=== PATIENT | female | born 1965 | race Caucasian/White ===

== ENCOUNTER → 2019-08-20 | Day surgery (SDC) | payer OTHER ==
[~2019-08-20] VITALS: Ht 144.8 cm; Wt 81.4 kg
[~2019-08-20] MED LIST: ACETYLCYSTEINE 10% 100 MG/ML 30 ML ORAL SOLUTION PO ONE; ADAL40SY SQ; ALBU8.5H8 IH; ALBUTEROL SULFATE 2.5 MG/0.5 ML NEB SOLUTION NEB ONE; ASPI-728 PO; BENZOCAINE 20% 50 MCG/SPRAY 57 GM TP ONE; CEPH-582 PO; CHOL100018 PO; FOLI0.4T14 PO; FentaNYL CITRATE-PF 100 MCG/2 ML VIAL ONE; GABA-531 PO; LIDOCAINE 2% 30 ML JELLY TP ONE; LIDOCAINE 4% 50 ML SOLUTION TP ONE; LOSA-30 PO; METF-960 PO; MIDAZOLAM HCL 2 MG/2 ML VIAL ONE; MULT-700 PO; MethylPREDNISolone SOD SUCC 125 MG/2 ML VIAL IVP ONE; MethylPREDNISolone SOD SUCC 125 MG/2 ML VIAL ONE; OMEP20 PO; OXYGEN THERAPY IH SCH; POLY17PO PO; ROSU20TA23 PO; SERT50TA12 PO; SITA100 PO; SODIUM CHLORIDE 0.9% 1,000 ML IV ONE; SODIUM CHLORIDE 0.9% 1,000 ML ONE
[2019-08-20 08:10] LABS: GLUCOMETER DEV NAME(LOC) SDS.; GLUCOSE,POINT OF CARE 339 MG/DL (70-110)
== END | disposition home or self-care (01) ==
LOC: SURGERY 06:17
PROVIDERS: ATTEND Internal Medicine Critical Care Medicine
DX: R05 Cough (principal); R91.1 Solitary pulmonary nodule; J34.89 Other specified disorders of nose and nasal sinuses; J98.8 Other specified respiratory disorders; J38.4 Edema of larynx; B37.0 Candidal stomatitis; E78.00 Pure hypercholesterolemia, unspecified; I10 Essential (primary) hypertension; E11.9 Type 2 diabetes mellitus without complications; M19.90 Unspecified osteoarthritis, unspecified site; Z90.49 Acquired absence of other specified parts of digestive tract; Z79.899 Other long term (current) drug therapy
CPT/HCPCS: 31623; 31624; 71045; 82962; 87015; 87070; 87101; 87206; 87220; 88108; 88312; 93005; J2250; J2930; J3010; J7030; 87205